=== PATIENT | female | born 1990 | race Hispanic/Latino ===

== ENCOUNTER 2018-04-26 13:00 | Inpatient (IN) | payer BC, OTHER ==
[2018-04-26 13:29] VITALS: O2SAT 97
--- NOTE | 2018-04-26 14:01 | ED PDOC ---
HPI: Psych/Substance Abuse Time Seen by Provider: 04/26/18 13:58 Chief Complaint (Nursing): Psychiatric Evaluation Chief Complaint (Provider): Psychiatric Evaluation History Per: Patient History/Exam Limitations: no limitations Onset/Duration Of Symptoms: Hrs Current Symptoms Are (Timing): Still Present Additional Complaint(s): Patient is a 28 y/o female with a PMHx of bipolar disorder who was brought into the ED by the ambulance per her 's request for evaluation of increased agitation and loss of sense of reality. Patient states she is "unsure of what is real and not real." Patient continuously asks questions such as whether she is performing actions when she is now, such as making facial expressions. + suicidal ideation, with no plan, but considered calling suicide hotline today. + auditory hallucinations without malicious intent. Patient denies homicidal ideation. She states that she is taking her psych medications. PCP: None Provided Past Medical History Reviewed: Historical Data, Nursing Documentation, Vital Signs Vital Signs: Last Vital Signs Temp 98.1 F 04/26/18 13:23 Pulse 79 04/26/18 13:23 Resp 16 04/26/18 13:23 BP 125/80 04/26/18 13:23 Pulse Ox 97 04/26/18 13:23 - Medical History PMH: Bipolar Disorder Denies: Diabetes, Hepatitis, HIV, HTN, Seizures, Sexually Transmitted Disease - Surgical History Surgical History: No Surg Hx - Family History Family History: States: Unknown Family Hx - Immunization History Hx Influenza Vaccination: No - Home Medications Home Medications: Ambulatory Orders Medication Instructions Recorded QUEtiapine [Seroquel] 25 mg PO HS 04/26/18 Risperidone [Risperdal] 0.25 mg PO BID 04/26/18 - Allergies Allergies/Adverse Reactions: Allergies Allergy/AdvReac Type Severity Reaction Status Date / Time Cephalosporins Allergy RASH Verified 04/26/18 13:23 Penicillins Allergy RASH Verified 04/26/18 13:23 Review of Systems ROS Statement: Except As Marked, All Systems Reviewed And Found Negative Constitutional: Positive for: Other (Increased agitation and loss of sense of reality) Psych: Positive for: Suicidal ideation (but no plan), Other (Auditory Hallucinations w/o Malicious Intent; denies homicidal ideation) Physical Exam - Reviewed Nursing Documentation Reviewed: Yes Vital Signs Reviewed: Yes - Physical Exam Appears: Positive for: No Acute Distress Head Exam: Positive for: ATRAUMATIC, NORMAL INSPECTION, NORMOCEPHALIC Skin: Positive for: Normal Color Eye Exam: Positive for: Normal appearance, EOMI, Nystagmus (w/ Lateral Gaze) Neck: Positive for: Normal Cardiovascular/Chest: Positive for: Regular Rate, Rhythm Respiratory: Positive for: Normal Breath Sounds Gastrointestinal/Abdominal: Positive for: Normal Exam Extremity: Positive for: Normal ROM, Other (Equal Facsimile Operator Strength in Bilateral Upper Extremity) Neurologic/Psych: Positive for: Mood/Affect (Symmetric Smile; Can Puff Cheeks) - Laboratory Results Result Diagrams: 04/26/18 15:45 04/26/18 15:45 - ECG O2 Sat by Pulse Oximetry: 97 (RA) Pulse Ox Interpretation: Normal Medical Decision Making Medical Decision Making: Time: 1400 Plan: EKG Alcohol Serum BMP Urine Drug Screen Crisis Evaluation Urine CBC Chest Portable UA Time: 1630 Normal EKG. NSR with heart rate of 64 bpm. seen by company laundry worker. Pt is to be admitted under Dr. Wallace for Bipolar disorder. Scribe Attestation: Documented by Titi Francois, acting as a scribe for Cleo BAINS. Provider Scribe Attestation: All medical record entries made by the Scribe were at my direction and personally dictated by me. I have reviewed the chart and agree that the record accurately reflects my personal performance of the history, physical exam, medical decision making, and the department course for this patient. I have also personally directed, reviewed, and agree with the discharge instructions and disposition. Disposition - Clinical Impression Clinical Impression: Bipolar disorder current episode depressed - Patient ED Disposition Is Patient to be Admitted: Transfer of Care Discussed With : Briana Wallace Doctor Will See Patient In The: Hospital - Disposition Disposition: Transfer of Care Disposition Time: 16:59 Condition: FAIR
[2018-04-26 16:01] LABS: BASO # 0.1 K/uL (0.0-0.2); BASO % 0.8 % (0.0-2.0); EOS # 0.1 K/uL (0.0-0.7); EOS % 0.8 % (0.0-4.0); HEMOGLOBIN 14.1 g/dL (12.0-16.0); LYMPH # 2.7 K/uL (1.0-4.3); LYMPH % 37.4 % (20.0-40.0); MEAN CELL VOLUME 86.1 fl (81.0-99.0); MEAN CORPUSCULAR HEMOGLOBIN 29.4 pg (27.0-31.0); MEAN CORPUSCULAR HGB CONC 34.1 g/dL (33.0-37.0); MEAN PLATELET VOLUME 7.1 fl (7.2-11.7); MONO # 0.4 K/uL (0.0-0.8); MONO % 5.7 % (0.0-10.0); NEUT # 4.1 K/uL (1.8-7.0); NEUT % 55.3 % (50.0-75.0); NRBC % 0.1 % (0.0-0.0); RBC 4.81 Mil/uL (3.80-5.20); RED CELL DISTRIBUTION WIDTH 13.3 % (11.5-14.5); WHITE BLOOD COUNT 7.4 K/uL (4.8-10.8)
[2018-04-26 16:03] LABS: SQUAMOUS EPITHIAL < 1 /hpf (0-5); URINE BACTERIA RARE (<OCC); URINE BILIRUBIN NEGATIVE (NEGATIVE); URINE BLOOD NEGATIVE (NEGATIVE); URINE CLARITY CLEAR (Clear); URINE COLOR STRAW (YELLOW); URINE GLUCOSE (UA) NEG (NEGATIVE); URINE LEUKOCYTE ESTERASE NEG Leu/uL (Negative); URINE PROTEIN NEGATIVE (NEGATIVE); URINE UROBILINOGEN 0.2-1.0 mg/dL (0.2-1.0)
[2018-04-26 16:13] LABS: BLOOD UREA NITROGEN 13 mg/dl (7-17); CALCIUM 9.5 mg/dL (8.4-10.2); GFR NON-AFRICAN AMERICAN > 60
[2018-04-26 16:27] LABS: BARBITURATES, UR NEGATIVE (NEGATIVE); BENZODIAZEPINES, UR NEGATIVE (NEGATIVE); OPIATES, UR NEGATIVE (NEGATIVE); PHENCYCLIDINE, UR NEGATIVE (NEGATIVE)
--- NOTE | 2018-04-26 16:56 | RAD ---
Date of service: 04/26/2018 HISTORY: baseline COMPARISON: No prior. FINDINGS: LUNGS: No active pulmonary disease. PLEURA: No significant pleural effusion identified, no pneumothorax apparent. CARDIOVASCULAR: No atherosclerotic calcification present Normal. OSSEOUS STRUCTURES: No significant abnormalities. VISUALIZED UPPER ABDOMEN: Normal. OTHER FINDINGS: None. IMPRESSION: No active disease.
[2018-04-26] MEDS ORDERED: DiphenhydrAMINE 50 mg/ml Inj IM PRN (18:39)
[2018-04-26] MEDS ORDERED: Magnesium Hydroxide Susp 30 ml UD PO PRN (18:39)
--- NOTE | 2018-04-26 19:26 | PCM.BM ---
<Diana Morataya - Last Filed: 04/26/18 19:24> Treatment Plan Problems - Problems identified on initial assessmt Altered Sleep Patterns Date Initiated: 04/26/18 Time Initiated: 19:25 Assessment reference: NA Status: Active Hoplessness/Helplessness Date Initiated: 04/26/18 Time Initiated: 19:25 Assessment reference: NA Feelings of Worthlessness Date Initiated: 04/26/18 Time Initiated: 19:25 Assessment reference: NA Status: Active Treatment assets and liabiliti Patient Assests: cooperative, educated, motivated, resourceful, ADL independent, physically healthy, good support system, negotiates basic needs Patient Liabilities: other - Milieu Protocol Maintain good personal hygiene: daily Encourage regular showers, daily Remind patient to perform daily oral care, daily Assist patient to perform ADL's Conduct patient checks and document Observation sheet: Q15 minutes Maintain personal safety: every shift Educate patient to report safety concerns to staff, every shift Monitor environment for contraband/sharps Medication safety: Monitor for expected outcome, potential side effects: every shift, Assess barriers to learning: every shift, Assess readiness for medication education: every shift Family Contact Family involvement: Family/SO is involved <Maurice Crisostomo - Last Filed: 05/02/18 13:32> Family Contact Family contact: Patient agrees to contact, Family has been contacted by patient, Telephone contact initiated by staff Family contact name: Medhat () Family contacted how many times per week?: 3 Family contact comment: Non Destructive Evaluation Technician met with pt, pt's mother, and pt's , Medhat, to discuss symptoms, provide psychoeducation surrounding psychosis and medications, length of stay, and discharge. Non Destructive Evaluation Technician expressed that pt has good insight into her condition and her ability to reality test and communicate with staff when she feels more anxiety or paranoia. Non Destructive Evaluation Technician explained pt's current medications of Risperdal and Seroquel. Family is very involved in pt's life and treatment and was able to express when he first realized psychotic symptoms were present. Medhat explained that since he has known pt (4 years) pt tends to have 1-2 manic or psychotic episodes a year, but has never noticed a true manic episodes and they tend to be more hypomanic in nature and more internal for the pt. - Goals for Treatment Patient goals for treatment: Goals discussed for pt and family. It is important for pt to monitor the progress of her paranoid thoughts by reality testing her thoughts and feelings with herself, family, friends and hleping professionals. Pt requires added insight into her condition and needs to be more self-aware when she begins to decompensate. Patient's family/SO goals for treatment: Same as pt goals. Discharge/Continuing Care - Education Needs Education Needs: Family Medication, Family Diagnosis/Disease Process, Family Coping Skills, Family Aftercare Safety Plan, Patient Medication, Patient Diagnosis/Disease Process, Patient Coping Skills, Patient Aftercare Safety Plan - Discharge Discharge Criteria: Tolerates medication w/o severe side effects, Free of paranoid thoughts, Free of agitation, Normal sleep pattern, Ability to care for self, Reduction of target symptoms Discharge to:: Home, With Family - Treatment Team Participation Patient/Family/SO Statement: 05/02/18 12:14 Pt met with in team on 05/01/18. Pt reported that "everyday is getting better." Pt reported she is having trouble staying present, and she is attempting to build her self-esteem. Pt spoke about her automatic thoughts. Pt spoke about her insecurities and obsession of being liked beginning in middle school when her one very good friend stopped being her friend, seemingly, out of nowhere. Dr. Bhat discussed adding Luvox to pt's medications to treat the obsessive thoughts. Discussed with Family/SO: Yes Was Patient/Family/SO present at Treatment Team Meeting: Yes <Cherry Bhat - Last Filed: 05/02/18 13:38> - Diagnosis (1) Depression Status: Acute Interventions: psychotherapy, pharmacotherapy 05/02/18 13:38
--- NOTE | 2018-04-26 22:11 | CARD ---
APPROVED REPORT Date of service: 04/26/2018 EKG Measurement Heart [id number] <Conclusion> Normal sinus rhythm Normal ECG
--- NOTE | 2018-04-26 22:56 | PCM.PSYCH ---
Initial Psychiatric Evaluation - Initial Psychiatric Evaluation Chief Complaint (in patient's own words): pt was at work was feeling nervous and anxious thinking people were talking about her Patient's Reaction to Hospitalization: pt signed voluntarily and is verbally agreeable to remain inpt voluntarily History of Present Illness and Precipitating Events: Pt is a 28 year old, , , Female referred to the ED for Mood Disturbances and Paranoia. Since [place], pt reported feeling negative about herself. Pt disclosed having a diagnosis of Bipolar D/O, and was admitted twice. Pt was admitted once in 2009 at [facility], and the second time at [facility] 2 years ago for an overdose. Earlier today, pt reports having a difficult time concentrating at work, and felt suicidal but did not have a plan. Although people were nowhere close to her vicinity, pt felt that people were saying negative statements about her causing her to feel mentally handicapped. Pt currently meets w/ Dr. Perez in [place] whom currently prescribes her .25 mg of Risperdal during the morning and .5 mg in the Evening along w/ 25 mg of Seroquel. pt reports that she has been on various medications in past including lamictal, abilifiy, gabapentin, sertraline. reports lamictal was taken for approximately one years was stopped because she "developed a rash on her hands after the medication was increased to 15omg when the 100mg was not working her mood was up and down". reports took gabapentin for approx. 3 months "was prescribed off label for anxiety made feel like i was not there my stopped it> abilify was taken for several months but my dr stopped it because it may feel like i was without feeling had taken sertraline for 100mg for about a year when I was admitted the 2nd time they missed that i had a bottle of pills while i was inpt i thought they were sugar pills to i took the bottle to prove that they were sugar bills is of note that patient later stated that the pills were sertraline and when queried as to the difference in history pt answered that i don t know why. pt reports that she feels as though people are talking about her, without giving detail, talks about feeling like her in laws do not like but does not know why, cannot give detail, does not think her is happy but cannot give detail reports that was mid march 2018. speaks of cheating in past related to current as well as previous two boyfriends-when queried initally states does not remember, then states friend told her she kissed someone, then admits that may have been drinking, initially states that nicole drinks then la ter states that drinks 3-4 beers 3-4 times week. admits that smokes thc 1 once a month but has not smoked in several months tried to see if it helped me relax. speaks of reading and noting that she may have bipoar disorder border line personality disorder, admits that is easily slighted, changes moods with in same day, at times related to context of situation. Current Medications: Active Medications Generic Name Dose Route Start Last Admin Trade Name Freq PRN Reason Stop Dose Admin Acetaminophen 650 mg 04/26/18 18:39 Tylenol 325mg Tab PO Q4 PRN Pain, moderate (4-7) Al Hydrox/Mg Hydrox/Simethicone 30 ml 04/26/18 18:39 Maalox Plus 30 Ml PO Q4 PRN Dyspepsia Diphenhydramine HCl 50 mg 04/26/18 18:39 Benadryl IM Q6 PRN Extrapyramidal S/S Unable PO Diphenhydramine HCl 50 mg 04/26/18 18:39 Benadryl PO Q6 PRN insomnia Diphenhydramine HCl 50 mg 04/26/18 19:58 Benadryl PO HS PRN Sleep Haloperidol 5 mg 04/26/18 18:39 Haldol PO Q4 PRN Agitation Haloperidol Lactate 5 mg 04/26/18 18:39 Haldol IM Q4 PRN Agitation, Unable to Take PO Lorazepam 2 mg 04/26/18 18:39 Ativan IM Q4 PRN Anxiety/Agitation,Unable PO Lorazepam 2 mg 04/26/18 18:39 Ativan PO Q4 PRN Anxiety/Agitation Magnesium Hydroxide 30 ml 04/26/18 18:39 Milk Of Magnesia PO HS PRN Constipation Quetiapine Fumarate 25 mg 04/26/18 22:15 04/26/18 22:27 Seroquel PO 25 mg HS MAHOGANY Administration Past Psychiatric History - Past Psychiatric History Prior Professional Help: varied inpt x2, opd and pmd [facility] [place] [facility] and [facility] Nature of Treatment: inpt and opd with pmd follow up History of Abuse: denies History of ETOH/Drug Use: ?etoh THC History of Family Illness: admits is adopted does not know her biological parents does admit that at times feels as though she was not adopted because she is so much like her parents Pertinent Medical Hx (Current Medical&Sleep Prob, Allergies): Allergies Allergy/AdvReac Type Severity Reaction Status Date / Time Cephalosporins Allergy RASH Verified 04/26/18 13:23 Penicillins Allergy RASH Verified 04/26/18 13:23 QUEtiapine [Seroquel] 25 mg PO HS 04/26/18 Risperidone [Risperdal] 0.25 mg PO BID 04/26/18 Review of Systems - Psychiatric Psychiatric: Abnormal Sleep Pattern, Anxiety, Depression, Mood Swings Additional comments: changes of mood at times related to context, for example if she saw her boss 2 x in the hallway and the boss said ambar if she saw her boss a third time and the boss did not say latricelo (pt) would think that she (pt) had done something wrong, boss likely mad at her. denies cutting, burning self with cigarettes Mental Status Examination - Personal Presentation Personal Presentation: Looks younger than stated age - Affect Affect: Constricted - Motor Activity Motor Activity: Psychomotor Retardation - Reliability in Providing Information Reliability in Providing Information: Fair - Mood Mood: Depressed, Anxious - Formal Thought Process Formal Thought Process: Paranoia - Hallucinations/Delusions Delusions: Persecution - Obsessions/Compulsions Obsessions: Yes Compulsions: Yes Description of Obsession/Compulsion: needs to have things in order if not makes me nervous, arranges closets according to color fabric - Cognitive Functions Orientation: Person, Place, Situation Sensorium: Alert Attention/Concentration: Easily distracted Judgement: Imparied, as evidence by: Other Memory: Recent impaired, as evidenced by: Other, Remote impaired as evidenced by: Other Additional comments: pt is at times poor historian, having gaps in details, circumstantial-when qu eried at times " i dont know, dont remember", when asked about stated infidelity states I dont remember my friend told me" when queried as to recall "i am not sure maybe i kissed someone ". denies believing was abused or violated. - Risk Risk: Suicidal Additional comments: contracts safety, vague history related to past attempts - Strength & Assets Inventory Strength & Assets Inventory: Intelligence (? historian, ), Cooperative DSM 5 DX - DSM 5 DSM 5 Diagnosis: history of bipolar disorder history of suicide attempt-od pills reportedly impulsive - Recommended/Plan of Treatment Treatment Recommendations and Plan of Treatment: inpt per attending vital signs and clinical observation per protocol and per clinical status prns per unit protocol hospitalist consult start seroquel 25mg po hx, risperdal 0.25mg in am and 0.5mg po pm (history of taking at home)-team may consider maximizing one medication and tapering off or discontinue the other-consider possible mood stabilizer\\ team to obtain collateral information in am pmd team consider possible dbt-possible personality disorder possible borderline traits (pt is aware of dbt-ice water if necessary finger dipped, tapping self on face (for distraction), mindfulness discharge planning in progress Projected ELOS: 7-7 days or per clinical status Prognosis: guarded Discharge Plan and Discharge Criteria: safety - Smoking Cessation Smoking Cessation Initiated: No Reason for not providing: defers
[2018-04-27 08:33] LABS: BASO # 0.1 K/uL (0.0-0.2); BASO % 0.8 % (0.0-2.0); EOS # 0.1 K/uL (0.0-0.7); HEMOGLOBIN 14.9 g/dL (12.0-16.0); LYMPH # 2.3 K/uL (1.0-4.3); LYMPH % 35.2 % (20.0-40.0); MEAN CELL VOLUME 86.1 fl (81.0-99.0); MEAN CORPUSCULAR HEMOGLOBIN 29.3 pg (27.0-31.0); MEAN PLATELET VOLUME 7.3 fl (7.2-11.7); MONO # 0.4 K/uL (0.0-0.8); MONO % 6.2 % (0.0-10.0); NEUT # 3.7 K/uL (1.8-7.0); NEUT % 56.8 % (50.0-75.0); NRBC % 0.3 % (0.0-0.0); RBC 5.1 Mil/uL (3.80-5.20); RED CELL DISTRIBUTION WIDTH 12.8 % (11.5-14.5); WHITE BLOOD COUNT 6.5 K/uL (4.8-10.8)
[2018-04-27] MEDS ORDERED: Influenza Vaccine (5 YR UP)/PF 60 MCG/0.5 ML SYR IM ONE (09:00)
[2018-04-27 09:12] LABS: ALB/GLOB RATIO 1.3 (1.0-2.1); ALBUMIN 4.7 g/dL (3.5-5.0); ALT/SGPT 40 U/L (9-52); AST/SGOT 36 U/L (14-36); BLOOD UREA NITROGEN 11 mg/dl (7-17); CALCIUM 9.7 mg/dL (8.4-10.2); GFR NON-AFRICAN AMERICAN > 60; HDL CHOLESTEROL 82 MG/DL (30-70)
[2018-04-27 09:24] LABS: LDL CHOLESTEROL 85 mg/dL (0-129)
[2018-04-27 10:14] LABS: T4 13.8 ug/dl (5.5-11.0)
--- NOTE | 2018-04-27 17:22 | PCM.PYCHPN ---
Psychiatric Progress Note - Psychiatric Progress Note Patient seen today, length of contact: chart reviewed case discussed with team pt seen Patient Chief Complaint: reports slept well, no side effects rx-speaks of feeling uncomfortable in social situations, feels as though if people are laughing etc might be talking about her, reports that she sees a Dr Lakia Mason psychologist and [facility]-admitted psychiatrist believed pt might have borderline personality while stating that her psychologist did not believe pt had borderline, pt is uncertain providers communicated. speaks of a friend stating that pt might have borderline personality related to one pt said something (pt does not recall what) that "hurt" friend, pt reports that her in laws do not like her but cannot state why, reports that one occasion her mother in law got to get pt a tylenol and her father in law stated "and you called her a bitch (meaning mother in law- preortedly did not respond denies stating such), pt.'s has not reportedly state hearing any thing. pt rx adherent, pt denies side effect rx, pt admits that in the past having bipolar II when admitted 2009. pt verbally agreeable to sign release for team to speak with psychologist and psychiatrist. Problems Identified/Issues Discussed: alteration in mood alteration in cognition Medical Problems: per chart elevated t4 Diagnostic Results: per chart per psychiatry per medicine per nursing per social work DSM 5 Symptoms Update: slept last night, paranoia, ?ideas of reference Medication Change: No Medical Record Reviewed: Yes Consults ordered or reviewed: pt to be seen by dr muhammad Mental Status Examination - Cognitive Function Orientation: Person, Place, Situation Attention: Poor Concentration: Poor Association: Loose Fund of Knowledge: Poor Decription of patient's judgement and insights: impaired - Mood Mood: Depressed, Anxious - Affect Affect: Constricted - Speech Speech: Loud - Formal Thought Process Formal Thought Process: Paranoia - Homicidal Ideation Homicidal Ideation: No Goal/Treatment Plan - Goal/Treatment Plan Progress Toward Problem(s) and Goals/Treatment Plan: inpt milieu vital signs and clinical observation per protocol and per clinical status prns per unit protocol hospitalist consult pt agreeable to sign releases to allow communication with psychologist and psychiatris pt to be seen by dr muhammad- team consider possible dbt-possible personality disorder possible borderline traits (pt is aware of dbt-ice water if necessary finger dipped, tapping self on face (for distraction), mindfulness discharge planning in progress
--- NOTE | 2018-04-28 22:16 | PCM.PYCHPN ---
Psychiatric Progress Note - Psychiatric Progress Note Patient seen today, length of contact: chart reviewed case discussed with team pt seen Patient Chief Complaint: pt was seen reports that would like to stop seroquel and start a higher dose to avoid multiple medications-was seen visiting today with mother and , reportedly visit went well. pt reflects on hx of being adopted and then wondering if she was admitted or not-does not give reason as to why adoptive parents would lie, admits that at times believes people are talking about her, walking by people and thinking they are talking about her when she or they walk by, does not offer reason why, staff report that pt is paranoid at times, rx adherent Problems Identified/Issues Discussed: alteration in mood alteration in cognition Medical Problems: per chart elevated t4 Diagnostic Results: per chart per psychiatry per medicine per nursing per social work DSM 5 Symptoms Update: paranoia, ideas of reference, ?s/s personality disorder ?borderline traits Medication Change: Yes (d/cseroquel, increase risperdal 0.5mg po am 1mg po hs) Medical Record Reviewed: Yes Consults ordered or reviewed: pt seen by hospitalist Mental Status Examination - Cognitive Function Orientation: Person, Place, Situation Attention: Poor Concentration: Poor Association: Loose Fund of Knowledge: Poor Decription of patient's judgement and insights: impaired - Mood Mood: Depressed, Anxious - Affect Affect: Constricted - Speech Speech: Loud - Formal Thought Process Formal Thought Process: Paranoia Psychotic Thoughts and Behaviors: ideas of reference - Homicidal Ideation Homicidal Ideation: No Goal/Treatment Plan - Goal/Treatment Plan Progress Toward Problem(s) and Goals/Treatment Plan: inpt milieu vital signs and clinical observation per protocol and per clinical status prns per unit protocol hospitalist consult pt agreeable to sign releases to allow communication with psychologist and psychiatrist pt to be seen by dr muhammad- team consider possible dbt-possible personality disorder possible borderline traits (pt is aware of dbt-ice water if necessary finger dipped, tapping self on face (for distraction), mindfulness pt was seen with and mother with pt present with pt's expressed permission(part of visit today) will d/c seroquel will start risperdal 0.5mg po am and risperdal 1mg po hs- attempt to avoid multiple meds-pt verbally agreeable-review possible eps, possible increase weight/blood sugar/cholesterao discharge planning in progress Estimated Date of D/C: 05/04/18 - Smoking Cessation Smoking Cessation Initiated: No Reason for not providing: pt defers
--- NOTE | 2018-04-29 19:12 | PCM.PYCHPN ---
Psychiatric Progress Note - Psychiatric Progress Note Patient seen today, length of contact: chart reviewed case discussed with team pt seen Patient Chief Complaint: seen in milieu, having visit with , pt was reportedly adherent with medications denies side effects with medication slept fair, staff report pt rx adhernt somewhat less anxious, continues to think people might be talking about her when they walk buy concerned that she might be making "movements of lips" which are not seen song writer or team members, rx adherent Problems Identified/Issues Discussed: alteration in mood alteration in cognition Medical Problems: per chart elevated t4-pt seen by hospitalist Diagnostic Results: per chart per psychiatry per medicine per nursing per social work DSM 5 Symptoms Update: some improvement anxiety/paranoia but paranoia remains present as well as ideas of reference Medication Change: No Medical Record Reviewed: Yes Consults ordered or reviewed: pt seen by hospitalist Mental Status Examination - Cognitive Function Orientation: Person, Place, Situation Attention: WNL Concentration: WNL Association: WNL Fund of Knowledge: WNL Decription of patient's judgement and insights: impaired - Mood Mood: Depressed, Anxious - Affect Affect: Constricted - Speech Speech: Loud - Formal Thought Process Formal Thought Process: Paranoia Psychotic Thoughts and Behaviors: ideas of reference - Suicidal Ideation Suicidal Ideation: No - Homicidal Ideation Homicidal Ideation: No Goal/Treatment Plan - Goal/Treatment Plan Need for Continued Stay: Remain at risks for inpatient hospitalization, Discharge may exacerbated symptoms Progress Toward Problem(s) and Goals/Treatment Plan: inpt milieu vital signs and clinical observation per protocol and per clinical status prns per unit protocol hospitalist consult pt agreeable to sign releases to allow communication with psychologist and psychiatrist pt being followed by dr muhammad team consider possible dbt-possible personality disorder possible borderline traits (pt is aware of dbt-ice water if necessary finger dipped, tapping self on face (for distraction), mindfulness will continue to assess response to increased risperdal /team may consider increase [id number] discharge planning in progress Estimated Date of D/C: 05/04/18 - Smoking Cessation Smoking Cessation Initiated: No Reason for not providing: pt defers
--- NOTE | 2018-04-30 16:58 | PCM.PYCHPN ---
Psychiatric Progress Note - Psychiatric Progress Note Patient seen today, length of contact: chart reviewed case discussed with team pt seen Patient Chief Complaint: pt was seen, was discussed with pt. current status, review with pt. that risperdal had been adjusted upward because of pt's request to have seroquel stopped. review with pt that risperdal (like seroquel) is fda approved as a mood stabilizer. pt reports that she (pt) spoke with pt's therapist today and therapist reportedly stated that pt has various periods of the year (including around holidays) pt exhibits increased depression, reportedly therapist/psychologist suggested that pt might be started on a mood stabilizer. reflect with pt. that pt admitted to being this past march 2018 and had stopped her risperidone and quetiapine. pt. admits that had restarted just before admission-does not recall if therapist was aware of this. pt reports that previouslty had been on "orthotryclyclin low", had reportedly stopped it. discussed with pt that if a mood stabizer (anti eleptics could negative affect the nervous system of a fetus, pt. reports that did not consider this or discuss with therapist. review with pt that even risperidone could negative effect fetus and that if pt was to begin control a second birthcontrol method in addition to po form would have to be considered in concert with psych/qa-vhw-pyptyiy care . staff report that a message was left for pt's psychiatrist today. pt was noted to have been interacting with peer. pt noted to have dbt workbook. positive reinforcement was offered to pt related to pt's attempts and being active participant with treatment. Problems Identified/Issues Discussed: alteration in mood alteration in cognition Medical Problems: per chart elevated t4-pt seen by hospitalist Diagnostic Results: per chart per psychiatry per medicine per nursing per social work DSM 5 Symptoms Update: some improvement in mood, paranoia, Medication Change: No Medical Record Reviewed: Yes Consults ordered or reviewed: pt seen by hospitalist Mental Status Examination - Cognitive Function Orientation: Person, Place, Situation Attention: WNL Concentration: WNL Association: WNL Fund of Knowledge: WN Decription of patient's judgement and insights: impaired - Mood Mood: Depressed, Anxious - Affect Affect: Constricted - Speech Speech: Loud - Formal Thought Process Formal Thought Process: Paranoia Psychotic Thoughts and Behaviors: ideas of reference - Suicidal Ideation Suicidal Ideation: No - Homicidal Ideation Homicidal Ideation: No Goal/Treatment Plan - Goal/Treatment Plan Need for Continued Stay: Remain at risks for inpatient hospitalization, Discharge may exacerbated symptoms Progress Toward Problem(s) and Goals/Treatment Plan: inpt milieu vital signs and clinical observation per protocol and per clinical status prns per unit protocol hospitalist consult pt agreeable to sign releases to allow communication with psychologist and psychiatrist pt being followed by dr muhammad team consider possible dbt-possible personality disorder possible borderline traits (pt is aware of dbt-ice water if necessary finger dipped, tapping self on face (for distraction), mindfulness, pt has dbt workbook d team may consider increase [id number] with pt PT REPORTS LITHIUM TAKEN IN PAST CAUSED DECREASE EMOTIONAL FEELING-DISCUSS WITH PT THAT IF MOOD STABILIZERS ARE BEING CONSIDERED INCLUDING CURRENT BIRTHCONTROL MESSURES ARE TO BE ADDRESSED discharge planning in progress Estimated Date of D/C: 05/04/18 - Smoking Cessation Smoking Cessation Initiated: No Reason for not providing: PT DEFERS
--- NOTE | 2018-05-01 15:45 | PCM.PYCHPN ---
Psychiatric Progress Note - Psychiatric Progress Note Patient seen today, length of contact: chart reviewed case discussed with team pt seen Patient Chief Complaint: I need this pain to step Problems Identified/Issues Discussed: pt evaluated with treatment team , presenting with depressed mood and tearful affect , stated she continues to have episodes of depersonalization where she could not feel the reality of the moment she exists in , she also explained in details obsessive thoughts she keeps experiencing including that she is doing inappropriate behavior infront of others,the fact that others feel she is evil, thoughts that she is not adopted despite of knowing the opposite and thoughts that she is autistic, patient reported possible undoing compulsions including the need to stick her tongue pt emotionally distressed and having passive suicidal thoughts as she is being distressed by her OCD symptoms and feeling helpless and wishes she could end it reported feeling guilty as she is being a burden for her and unable to function at work , pt denied active thoughts of self harm on the unit denied perceptual disturbances, discussed with patient adding luvox for OCD with gradual uptitration and increasing the dose of risperidone , no reported current side effects, educated pt about the need to challenge negative thoughts and encouraged to attend groups DSM 5 Symptoms Update: obsessive compulsive disorder borderline personality disorder depression Medication Change: Yes (start luvox/increase risperidone ) Medical Record Reviewed: Yes Mental Status Examination - Cognitive Function Orientation: Person, Place, Situation Attention: WNL Concentration: WNL Association: WNL Fund of Knowledge: WNL - Mood Mood: Depressed, Anxious - Affect Affect: Constricted - Speech Speech: Soft - Formal Thought Process Formal Thought Process: Delusions, Paranoia - Suicidal Ideation Suicidal Ideation: Yes - Homicidal Ideation Homicidal Ideation: No Goal/Treatment Plan - Goal/Treatment Plan Need for Continued Stay: Remain at risks for inpatient hospitalization, Discharge may exacerbated symptoms Progress Toward Problem(s) and Goals/Treatment Plan: increase risperidone to 2mg start luvox 50mg increase gradually CBT group and supportive therapy Estimated Date of D/C: 05/04/18
[2018-05-02] MEDS: Alum-Mag Hydrox-Simethicone Susp (30 mL) PO PRN (05:57)
--- NOTE | 2018-05-02 13:46 | PCM.PYCHPN ---
Psychiatric Progress Note - Psychiatric Progress Note Patient seen today, length of contact: chart reviewed case discussed with team pt seen Patient Chief Complaint: I am trying to stay in the present using mindfulness Problems Identified/Issues Discussed: pt evaluated , reported she continues to have episodes of depersonalization yet she tries to use coping skills discussed yesterday including mindfulness to stay in the present, reported partially able to challenge the thoughts of exhibiting abnormal behaviour however this provokes increased anxiety, CBT provided discussing with pt gradual work on automatic thoughts, discussed increasing dose of luvox to help with obsessive and compulsive behaviour, no reported side pt denied active thoughts of self harm , denied perceptual disturbances DSM 5 Symptoms Update: borderline personality disorder OCD depression Medication Change: Yes (increase luvox) Medical Record Reviewed: Yes Mental Status Examination - Cognitive Function Orientation: Person, Place, Situation Attention: WNL Concentration: WNL Association: WNL Fund of Knowledge: WNL - Mood Mood: Depressed, Anxious - Affect Affect: Constricted - Speech Speech: Soft - Formal Thought Process Formal Thought Process: Delusions, Circumstantial - Suicidal Ideation Suicidal Ideation: No - Homicidal Ideation Homicidal Ideation: No Goal/Treatment Plan - Goal/Treatment Plan Need for Continued Stay: Remain at risks for inpatient hospitalization, Discharge may exacerbated symptoms Progress Toward Problem(s) and Goals/Treatment Plan: risperidone to 2mg daily luvox 100mg increase gradually CBT group and supportive therapy treatment plan will be discussed with private therapist temo pt consent Estimated Date of D/C: 05/04/18
--- NOTE | 2018-05-02 17:24 | HP ---
The patient is admitted to room 320, bed 2. CHIEF COMPLAINT: Ms. Guerra is a 28-year-old white female who presented to the emergency room because of complaint of not knowing what is real and not real. HISTORY OF PRESENT ILLNESS: The patient states that she has a history of bipolar disorder for many years. She has been seeing a psychologist as well as a psychiatrist but over the last several months she has been experiencing increasing bouts of not knowing what is real around her and what is not. The patient states that she was hearing voices that were not telling her to do anything to hurt herself or anyone else; however, she was very concerned about these symptoms worsening. She became more and more concerned about this and finally went to the emergency room where she was admitted through the psych unit. 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 She denies hypertension, diabetes, any cancer, tuberculosis, rheumatic which caused a fever. She denies any previous cardiac or pulmonary disease. 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 No or CERTIFIED OPHTHALMIC SURGICAL ASSISTANT issues at this time. ALLERGIES: THE PATIENT STATES THAT SHE WAS TOLD SHE WAS ALLERGIC TO CEPHALOSPORIN BY HER MOTHER. SHE DOES NOT KNOW THE REACTION. SHE THINKS IT WAS A RASH. THE PATIENT STATES THAT SHE WAS FOUND TO HAVE AN ALLERGY TO PENICILLIN DURING HER LAST ADMISSION BUT SHE DOES NOT REMEMBER THE REACTION. SHE THINKS IT WAS A RASH WELL. FAMILY HISTORY: The patient is adopted. She does not know the medical history of her parents. PHYSICAL EXAMINATION: GENERAL: We have this 28-year-old white female who is awake, alert, and oriented x3, in no apparent distress at the present time, sitting up in bed. VITAL SIGNS: Her blood pressure now is 108/77, pulse is 78 and regular, respirations are 18, non-labored, temperature is 98.2. HEENT: Head is normocephalic and atraumatic. The eyes are PERRLA. Extraocular motions intact but there is a nystagmus on right lateral gaze. Sclerae are clear. Conjunctivae are pink. The mouth mucosa is moist. No lesions are noted. NECK: Supple. No JVD. No HJR. The thyroid is not palpable. The pulses are equal bilaterally. No bruits are heard. CARDIOPULMONARY: The heart showed irregular rhythm with no rubs, murmurs, or gallops. LUNGS: Show good air entry bilaterally. No rales, wheezing, or rhonchi. ABDOMEN: Soft, nontender. Bowel sounds are positive. There is no organomegaly. No guarding or rebound tenderness. No CVA tenderness could be appreciated. EXTREMITIES: Show no clubbing, cyanosis, or edema. No Homans sign could be elicited. NEUROLOGIC: Examination showed the cranial nerves to be intact II through XII. Cerebellar function as well as could be tested was within normal limits. DTRs are equal bilaterally. IMPRESSION: Bipolar disorder, vertigo. PLAN: The patient is currently on medication as per her psychiatrist. This will be continued. She states that she does have some nausea and diarrhea from the new medications, which have been started; however, the nurse states that when she saw the bowel movement it was not diarrhea, the nurse states it was loose stool that was formed She will be continued on her current medication and therapeutic regimen. If needed, Antivert can be started for her vertigo, which she was diagnosed with in the past. She could start on 25 mg at bedtime and then increase if necessary to 12.5 mg b.i.d. and 25 at bedtime if symptoms persist on the bedtime dose. Walter Gore MD MTDD
[2018-05-03] MEDS: Alum-Mag Hydrox-Simethicone Susp (30 mL) PO PRN (08:11)
--- NOTE | 2018-05-03 14:33 | PCM.PYCHPN ---
Psychiatric Progress Note - Psychiatric Progress Note Patient seen today, length of contact: chart reviewed case discussed with team pt seen Patient Chief Complaint: I worry about my appearance and annoying other people Problems Identified/Issues Discussed: pt evaluated , appears less depressed, patient however continues to be anxious about her appearance, believing the possibility of abnormal movements of her lips, also concerned about her eyes movement, pt presenting with possible symptoms of somatization disorder, CBT provided discussed with pt importance of challenging the negative thoughts about her body appearance and the view of others in reference to her , discussed increasing dose of luvox , no reported side effects pt denied active thoughts of self harm , denied perceptual disturbances DSM 5 Symptoms Update: Obsessive compulsive disorder borderline personality disorder rule out/ body dysmorphic disorder rule out somatization disorder Medication Change: Yes (increase luvox) Medical Record Reviewed: Yes Mental Status Examination - Cognitive Function Orientation: Person, Place, Situation Attention: WNL Concentration: WNL Association: WNL Fund of Knowledge: WNL - Mood Mood: Depressed, Anxious - Affect Affect: Constricted - Speech Speech: Soft - Formal Thought Process Formal Thought Process: Delusions, Circumstantial Psychotic Thoughts and Behaviors: somatic delusions and preoccupation - Suicidal Ideation Suicidal Ideation: No - Homicidal Ideation Homicidal Ideation: No Goal/Treatment Plan - Goal/Treatment Plan Need for Continued Stay: Remain at risks for inpatient hospitalization, Discharge may exacerbated symptoms Progress Toward Problem(s) and Goals/Treatment Plan: risperidone to 2mg daily increase luvox 150mg CBT group and supportive therapy treatment plan discussed with private therapist upon pt consent Estimated Date of D/C: 05/07/18
[2018-05-03] MEDS ORDERED: Simethicone 80 mg Chewtab PO PRN (15:59)
[2018-05-03 16:24] VITALS: BMI 30.2
--- NOTE | 2018-05-04 14:45 | PCM.PYCHPN ---
Psychiatric Progress Note - Psychiatric Progress Note Patient seen today, length of contact: chart reviewed case discussed with team pt seen Patient Chief Complaint: I did not have any episode of depersonalization since yesterday Problems Identified/Issues Discussed: pt evaluated , seen in her room, reported feeling sedated with the morning dose of luvox, discussed to discontinue the morning dose, today presenting with less somatic preoccupation, reported had no recent episodes of depersonalization, pt presenting with brighter mood and affect, encouraged to continue to attend groups pt denied active thoughts of self harm , denied perceptual disturbances DSM 5 Symptoms Update: Borderline personality disorder obsessive compulsive disorder rule out somatization disorder Medication Change: Yes (decrease luvox) Medical Record Reviewed: Yes Mental Status Examination - Cognitive Function Orientation: Person, Place, Situation Attention: WNL Concentration: WNL Association: WNL Fund of Knowledge: WNL - Mood Mood: Depressed, Anxious - Affect Affect: Constricted - Speech Speech: Soft - Formal Thought Process Formal Thought Process: Delusions, Circumstantial Psychotic Thoughts and Behaviors: somatic delusions and preoccupation - Suicidal Ideation Suicidal Ideation: No - Homicidal Ideation Homicidal Ideation: No Goal/Treatment Plan - Goal/Treatment Plan Need for Continued Stay: Remain at risks for inpatient hospitalization, Discharge may exacerbated symptoms Progress Toward Problem(s) and Goals/Treatment Plan: risperidone o 2mg daily decrease luvox 100mg qhs CBT group and supportive therapy referral to [facility] partial program on discharge Estimated Date of D/C: 05/07/18
--- NOTE | 2018-05-05 11:28 | PCM.PYCHPN ---
Psychiatric Progress Note - Psychiatric Progress Note Patient seen today, length of contact: Pt evaluated, case discussed w/ team, chart reviewed Patient Chief Complaint: "I'm starting to feel better." Problems Identified/Issues Discussed: Patient continues to report feeling depressed and anxious at times. She is concerns that she may be having continued episodes of depersonalization and states that she believes she went to the bathroom in the middle of the night without realizing it and also expressed concerned that she was making facial movement or expressions without realizing it that others noticed. She does not want to continue taking Trazodone because she does not believe it is helpful. Medication Change: Yes (Stop Trazodone) Medical Record Reviewed: Yes Consults ordered or reviewed: Medicine Mental Status Examination - Cognitive Function Orientation: Person, Place, Situation, Time Memory: Intact Attention: WNL Concentration: WNL Association: WNL Fund of Knowledge: WN Decription of patient's judgement and insights: Improving I/J - Mood Mood: Depressed, Anxious - Affect Affect: Constricted - Speech Speech: Appropriate - Formal Thought Process Formal Thought Process: Circumstantial Psychotic Thoughts and Behaviors: Somatic preoccupation; possible episodes of depersonalization - Suicidal Ideation Suicidal Ideation: No - Homicidal Ideation Homicidal Ideation: No Goal/Treatment Plan - Goal/Treatment Plan Need for Continued Stay: Remain at risks for inpatient hospitalization, Discharge may exacerbated symptoms Progress Toward Problem(s) and Goals/Treatment Plan: Borderline personality disorder; Obsessive compulsive disorder; rule out Somatization disorder -Stop Trazodone -Continue Luvox and Risperdal -Individual and group therapy -Medicine consult -Disposition planning Estimated Date of D/C: 05/07/18
--- NOTE | 2018-05-06 08:34 | PCM.PYCHPN ---
Psychiatric Progress Note - Psychiatric Progress Note Patient seen today, length of contact: Pt evaluated, case discussed w/ team, chart reviewed Patient Chief Complaint: "I'm getting better." Problems Identified/Issues Discussed: Patient reports that her mood is improving. She feels less anxious and depressed. She continues to express concerns that she may be having periods of depersonalization. We discussed the importance of terminal clerk therapy. She reports mild sleep disturbances. No adverse effects to medications reported. Medication Change: No Medical Record Reviewed: Yes Consults ordered or reviewed: Medicine Mental Status Examination - Cognitive Function Orientation: Person, Place, Situation, Time Memory: Intact Attention: WNL Concentration: WNL Association: WNL Fund of Knowledge: [facility] Decription of patient's judgement and insights: Improving I/J - Mood Mood: Anxious - Affect Affect: Constricted - Speech Speech: Appropriate - Formal Thought Process Formal Thought Process: Circumstantial Psychotic Thoughts and Behaviors: Somatic preoccupation - Suicidal Ideation Suicidal Ideation: No - Homicidal Ideation Homicidal Ideation: No Goal/Treatment Plan - Goal/Treatment Plan Need for Continued Stay: Remain at risks for inpatient hospitalization, Discharge may exacerbated symptoms Progress Toward Problem(s) and Goals/Treatment Plan: Borderline personality disorder; Obsessive compulsive disorder; rule out Somatization disorder -Continue Luvox and Risperdal -Individual and group therapy -Medicine consult -Disposition planning Estimated Date of D/C: 05/07/18
[2018-05-07 09:22] VITALS: BP 119/58; PULSE 101; RESP 20; TEMP 98.1
--- NOTE | 2018-05-07 11:50 | PCM.PYCHDC ---
Mental Status Examination - Mental Status Examination Orientation: Person, Place, Situation, Time Mood: Neutral Affect: Broad Speech: Appropriate Attention: WNL Concentration: WNL Association: WNL Fund of Knowledge: WNL Formal Thought Process: No Impairment Description of patient's judgement and insight: good insight and fair judgment Psychotic Thoughts and Behaviors: pt denied perceptual disturbances,, non elicited Suicidal Ideation: No Current Homicidal Ideation?: No Discharge Summary - Discharge Note Reason for Hospitalization: Pt is a 28 year old, , , Female referred to the ED for Mood Disturbances and Paranoia. Since gi, pt reported feeling negative about herself. Pt disclosed having a diagnosis of Bipolar D/O, and was admitted twice. Pt was admitted once in 2009 at [facility], and the second time at [facility] 2 years ago for an overdose. Earlier today, pt reports having a difficult time concentrating at work, and felt suicidal but did not have a plan. Although people were nowhere close to her vicinity, pt felt that people were saying negative statements about her causing her to feel mentally handicapped. Pt currently meets w/ Dr. Perez in [place] whom currently prescribes her .25 mg of Risperdal during the morning and .5 mg in the Evening along w/ 25 mg of Seroquel. pt reports that she has been on various medications in past including lamictal, abilifiy, gabapentin, sertraline. reports lamictal was taken for approximately one years was stopped because she "developed a rash on her hands after the medication was increased to 15omg when the 100mg was not working her mood was up and down". reports took gabapentin for approx. 3 months "was prescribed off label for anxie ty made feel like i was not there my stopped it> abilify was taken for several months but my dr stopped it because it may feel like i was without feeling had taken sertraline for 100mg for about a year when I was admitted the 2nd time they missed that i had a bottle of pills while i was inpt i thought they were sugar pills to i took the bottle to prove that they were sugar bills is of note that patient later stated that the pills were sertraline and when queried as to the difference in history pt answered that i don t know why. pt reports that she feels as though people are talking about her, without giving detail, talks about feeling like her in laws do not like but does not know why, cannot give detail, does not think her is happy but cannot give detail reports that was mid march 2018. speaks of cheating in past related to current as well as previous two boyfriends-when queried initally states does not remember, then states friend told her she kissed someone, then admits that may have been drinking, initially states that nicole drinks then later states that drinks 3-4 beers 3-4 times week. admits that smokes thc 1 once a month but has not smoked in several months tried to see if it helped me relax. speaks of reading and noting that she may have bipoar disorder border line personality disorder, admits that is easily slighted, changes moods with in same day, at times related to context of situation. Psychiatric History (includes Medical, Family, Personal Hx): inpt and opd with pmd follow up Consultations:: List each consultation separately and include: 1. Reason for request. 2. Findings. 3. Follow-up Summary of Hospital Course include:: 1. Description of specific treatment plan utilized for patients during their course of treatmen. 2. Summarize the time- course for resolution of acute symptoms and/or regressed behaviors. 3. Describe issues identified and worked on during hospitalization. 4. Describe medication utilized. 5. Describe medical problems identified and treated. 6. Reassessment of suicide risk Summary of Hospital Course: pt on admission presented with depressed mood, reported having multiple obsessions and compulsions of somatic component with delusional beliefs pt was convinced she is at times unintentionally protruding her tongue or twisting her lips CBT provided, also spoke with patient,s private therapist upon the patient consent , she indicated she has been treatng pt for past two years for Borde rline personality and depression using DBT pt was started on luvox, increased to 100mg , also started on risperidone,increased to 2mg pt was compliant with treatment ,attending groups, no reported side effects of medications pt was partially able to challenge thoughts of somatic preoccupation , ,on discharde mental status was stable pt denied any current suicidal or homicidal ideation denied perceptual disturbances follow up arranged by social service liaison at [facility] program - Diagnosis (1) Depression Current Visit: Yes Status: Acute - Final Diagnosis (DSM 5) Condition upon Discharge: FAIR DSM 5: borderline personality disorder obsessive compulsive disorder with delusional beliefs depression Disposition: HOME/ ROUTINE Follow-up Treatment Plan: risperidone o 2mg daily decrease luvox 100mg qhs CBT group and supportive therapy referral to [facility] program on discharge Prescriptions/Medication Reconciliation: fluvoxaMINE [Luvox] 100 mg PO HS 30 Days #30 tab risperiDONE [RisperDAL Tab] 1.5 mg PO HS 30 Days #90 tab risperiDONE [RisperDAL Tab] 0.5 mg PO DAILY 30 Days #30 tab - Antipsychotic Medications Pt discharged on 2 or more routine antipsychotic medications: No
== END 2018-05-07 12:12 | disposition home or self-care (01) | DRG 883 ==
LOC: H.ER 13:00 → H.ERHOLD 16:59 → H.PSYCH 18:37
PROVIDERS: ADMIT Psychiatry & Neurology Psychiatry; ATTEND Psychiatry & Neurology Psychiatry
PROC: GZHZZZZ Group Psychotherapy (ICD-10-PCS; principal; 2018-04-26)
PROC: GZ58ZZZ Individual Psychotherapy, Cognitive-Behavioral (ICD-10-PCS; 2018-04-26)
PROC: GZ56ZZZ Individual Psychotherapy, Supportive (ICD-10-PCS; 2018-04-26)
DX: F60.3 Borderline personality disorder (principal); R45.851 Suicidal ideations; F42.8 Other obsessive-compulsive disorder; F32.9 Major depressive disorder, single episode, unspecified; R42 Dizziness and giddiness; Z88.0 Allergy status to penicillin